=== PATIENT | female | born 1930 | race Caucasian/White ===

== ENCOUNTER 2018-12-24 22:15 | Emergency (ER) | payer OTHER ==
[~2018-12-24] VITALS: Ht 165.1 cm; Wt 40.8 kg
[2018-12-24 22:19] VITALS: BP_SYST 124
--- NOTE | 2018-12-24 22:26 | NUR ---
Patient to ER bed 6 for evaluation. Report given to
--- NOTE | 2018-12-24 22:42 | NUR ---
ER at bedside examining patient.
--- NOTE | 2018-12-24 22:44 | NUR ---
Pt came to the ED for R thumb pain/wound which happened around [id number] this evening. Hx of dementia and sundowner syndrome. Pt unsure how wound happened. No n/v/d or fever. WIll cont. to monitor.
[2018-12-24] MEDS ORDERED: QUEtiapine FUMARATE 25 MG TABLET PO ONE (23:00)
[2018-12-24] MEDS ORDERED: BACITRACIN 1 GM OINT TP ONE ×2 (23:00→23:14)
[2018-12-24] MEDS ORDERED: QUEtiapine FUMARATE 25 MG TABLET ONE (23:10)
--- NOTE | 2018-12-24 23:19 | NUR ---
PT medicated with seroquel PO . Bacitracin applied to wound after cleaning and dressing. Tolerated well. Will cont. to monitor.
[2018-12-24 23:24] VITALS: BP_SYST 124
--- NOTE | 2018-12-24 23:24 | NUR ---
Patient given written and verbal discharge instructions and verbalizes understanding. ER MD Dr. Thomas discussed with patient the results and treatment provided. Patient in stable condition. ID arm band removed. Patient educated on pain management and to follow up with PMD within 2-3 days. Pain Scale 0/10. Opportunity for questions provided and answered. Medication side effect fact sheet provided.
== END 2018-12-24 23:24 | disposition home or self-care (01) ==
LOC: SED 22:15
DX: S61.011A Laceration without foreign body of right thumb without damage to nail, initial encounter (principal); F03.90 Unspecified dementia, unspecified severity, without behavioral disturbance, psychotic disturbance, mood disturbance, and anxiety; X58.XXXA Exposure to other specified factors, initial encounter; Y93.89 Activity, other specified; Y92.89 Other specified places as the place of occurrence of the external cause; Y99.8 Other external cause status
CPT/HCPCS: 99283